=== PATIENT | female | born 1950 | race Asian ===

== ENCOUNTER 2018-10-16 13:11 | Inpatient (IN) | payer OTHER ==
[~2018-10-16] VITALS: Ht 152.4 cm; Wt 51.0 kg
[2018-10-16 13:20] VITALS: Ht 152.4 cm; Wt 51.0 kg
[2018-10-16 14:09] LABS: BASOPHIL % 0.5 % (0-2); RED CELL DISTRIBUTION WIDTH 12.3 % (11.5-14.5)
[2018-10-16 14:22] LABS: ALKALINE PHOSPHATASE 62 U/L (46-116); ALT/SGPT 12 U/L (14-59); AST/SGOT 16 U/L (15-37); BILIRUBIN TOTAL 0.31 mg/dL (0.20-1.00); CALCIUM 8.1 mg/dL (8.5-10.1); CARBON DIOXIDE 29.8 mmol/L (21-32); CHLORIDE SERUM 105 mmol/L (98-107); CREATININE SERUM 0.9 mg/dL (0.6-1.0); GFR1 > 60 mL/min; GLUCOSE SERUM 93 mg/dL (74-106); POTASSIUM SERUM 3.5 mmol/L (3.5-5.1); SODIUM SERUM 142 mmol/L (136-145)
[2018-10-16 14:24] LABS: FREE T4 0.92 ng/dL (0.76-1.46); FREE THYROXINE INDEX 2.1 ug/dL (1.4-4.5); T4(THYROXINE) 5.9 ug/dL (4.7-13.3)
[2018-10-16 14:30] LABS: T3 TOTAL 1.01 ng/mL
[2018-10-16 14:34] LABS: PLATELET COUNT 120 x10^3mcL (130-400)
[2018-10-16] MEDS ORDERED: AMLODIPINE BESYL5 M2 PO (16:36)
[2018-10-16 17:17] LABS: CHOLESTEROL/HDL RATIO 2.4; PHOSPHOROUS 3.3 mg/dL (2.5-4.9)
[2018-10-16 17:28] VITALS: BP 82/44
[2018-10-16 18:45] VITALS: BP 74/32
[2018-10-16 20:42] VITALS: BP 83/40
[2018-10-16 22:54] VITALS: BP 80/39
[2018-10-17 04:30] VITALS: BP 78/41
[2018-10-17 06:48] LABS: CALCIUM 7.9 mg/dL (8.5-10.1); CREATININE SERUM 1.1 mg/dL (0.6-1.0); MAGNESIUM 2.1 mg/dL (1.8-2.4); PHOSPHOROUS 3.6 mg/dL (2.5-4.9); POTASSIUM SERUM 4.5 mmol/L (3.5-5.1)
[2018-10-17 06:53] LABS: BASOPHIL % 0.4 % (0-2); PLATELET COUNT 99 x10^3mcL (130-400); RED CELL DISTRIBUTION WIDTH 13.5 % (11.5-14.5)
[2018-10-17 08:59] VITALS: BP 81/41
[2018-10-17 10:32] LABS: UA SPECIFIC GRAVITY >=1.030 (1.005-1.035); microscopic required? YES; urine erythrocyte NEGATIVE (NEGATIVE)
[2018-10-17 11:00] LABS: AMPHETAMINE QUAL UR NONE DETECTED (See below)
[2018-10-17 14:01] VITALS: BP 98/38
[2018-10-17 14:28] VITALS: BP 94/45
[2018-10-17 17:31] VITALS: BP 94/45
== END 2018-10-17 17:45 | disposition short-term general hospital (02) | DRG 314 ==
LOC: ED 13:11 → DU 16:10 → IC 16:10 → DU 17:11 → IC 10-17 14:58
PROVIDERS: Emergency Medicine; ADMIT General Practice
DX: I95.9 Hypotension, unspecified (principal); I71.03 Dissection of thoracoabdominal aorta; E44.0 Moderate protein-calorie malnutrition; Z68.1 Body mass index [BMI] 19.9 or less, adult; I35.0 Nonrheumatic aortic (valve) stenosis; G90.8 Other disorders of autonomic nervous system; I10 Essential (primary) hypertension; K21.9 Gastro-esophageal reflux disease without esophagitis; E83.51 Hypocalcemia; I71.2 Thoracic aortic aneurysm, without rupture; I35.1 Nonrheumatic aortic (valve) insufficiency
CPT/HCPCS: 83880; 84439; 97116-GP; A4570; J0610; J1610; J3490; J7030; Q0092; Q9967